=== PATIENT | female | born 1980 | race Caucasian/White ===

== ENCOUNTER → 2020-01-17 | Outpatient (CLI) | payer OTHER ==
--- NOTE | 2020-01-17 18:05 | NUR ---
to WS via ambulation from registration for rhogam administration.
--- NOTE | 2020-01-17 18:55 | NUR ---
rhogam given. see intervention. [id number] ambulated off WS , no s/s of distress. voiced no concerns.
== END ==
LOC: WSo 17:50
PROVIDERS: ATTEND Obstetrics & Gynecology
DX: O36.0191 Maternal care for anti-D [Rh] antibodies, unspecified trimester, fetus 1 (principal)
CPT/HCPCS: 96372

== ENCOUNTER 2020-04-06 03:49 | Inpatient (IN) | payer OTHER ==
[2020-04-06] VITALS (14 sets, daily range): BP systolic 115–143; BP diastolic 63–105
[~2020-04-06] VITALS: Ht 167 cm; Wt 76.0 kg
--- NOTE | 2020-04-06 03:55 | NUR ---
AYUSH MACIAS presented to unit via ambulation from ED, accompanied by , with c/o CONTRACTIONS. AYUSH MACIAS weighed, gowned, voided, and to bed. EFHM and TOCO applied, VS taken. AYUSH MACIAS oriented to bed controls, call light, TV, heat, and A/C controls.
[2020-04-06] MEDS ORDERED: D5 LR IV SOLUTION 1,000 ML IV ONE (04:03)
--- NOTE | 2020-04-06 04:05 | NUR ---
Dr. Feng notified of arrival and assessment. Orders received. en route to hospital.
[2020-04-06] MEDS ORDERED: LIDOCAINE/EPI 2% 1:200,00 (XYLOCAINE) 10 ML VIAL ONE (04:15)
[2020-04-06] MEDS ORDERED: OXYTOCIN PRE-MIX DRIP 500 ML IV ONE (04:15)
[2020-04-06] MEDS ORDERED: D5 LR IV SOLUTION 1,000 ML IV SCH (04:23)
[2020-04-06] MEDS ORDERED: OXYTOCIN PRE-MIX DRIP 500 ML IV SCH (05:13)
--- NOTE | 2020-04-06 05:13 | History & Physical ---
History and Physical Date Seen by Provider: Apr 06, 2020 Time Seen by Provider: 05:11 this patient is a 39-year-old 2 para 1 female admitted on her due date in active labor. Cervix was 7 cm dilated at admission. GBS culture had been negative. Presently she had been uncomplicated to date. aLLERGIES ARE TO PENICILLIN mEDICATIONS ARE VITAMINS mEDICAL SOCIAL AND SURGICAL HISTORIES ARE PER THE ANTEPARTUM RECORD heent EXAM IS NORMAL nECK IS SUPPLE NO LYMPHADENOPATHY NO THYROMEGALY aBDOMEN IS GRAVID SOFT NONTENDER NONDISTENDED eXTREMITIES SHOW NO CLUBBING CYANOSIS. tHERE IS NO hOMANS SIGN. aVERAGE EXAM ON MY INITIAL EXAM SHOWED A CERVIX COMPLETELY DILATED WITH BULGING BAG AT THE -1 STATION WITH VERTEX PRESENTATION MONITOR SHOWS NORMAL HEART RATE PATTERN WITH CONTRACTIONS ABOUT EVERY 5 MINUTES aSSESSMENT AND PLAN TERM AT 40 WEEKS GESTATION ADMITTED IN ACTIVE LABOR. aNTICIPATE A VAGINAL DELIVERY SHORTLY. 40 week in active labor Allergies and Home Medications Allergies Coded Allergies: Penicillins (Verified Allergy, Mild, Rash, 04/06/20) Patient Home Medication List Home Medication List Reviewed: Yes SARI HER MD Apr 06, 2020 05:13
[2020-04-06] MEDS ORDERED: BENZOCAINE/MENTHOL (DERMOPLAST) 60 ML CAN TP PRN (05:15)
[2020-04-06] MEDS ORDERED: TETANUS,DIPTH,PERTUSS P/F (BOOSTRIX) 0.5 ML VIAL IM ONE (05:15)
[2020-04-06] MEDS ORDERED: MEASLES,MUMPS,RUBELLA 1 EA INJ SC ONE (05:15)
[2020-04-06] MEDS ORDERED: ONDANSETRON 4 MG/2 ML (SDV) Z0FRAN IVP PRN (05:15)
[2020-04-06] MEDS ORDERED: oxyCODONE/APAP 5/325MG (PERCOCET 5) TABLET PO PRN (05:15)
--- NOTE | 2020-04-06 05:16 | Discharge Inst-Surgical ---
Discharge Inst-Surgical Depart Medication/Instructions New, Converted or Re-Newed RX: RX on Chart Consults/Follow Up Patient Instructions: as directed Orders & Referrals Follow Up Appt: Call to make follow up appt. for patient in 4 weeks. Activity Per routine post vaginal delivery instructions. Please call in RX to patient pharmacy. Diet as tolerated Patient may shower or tub bathe as desired. Activity Activity as Tolerated: No Diet Discharge Diet: No Restrictions SARI HER MD Apr 06, 2020 05:16
[2020-04-06] MEDS ORDERED: DCS100C PO (05:17)
[2020-04-06] MEDS ORDERED: IBUP-1780 PO (05:17)
--- NOTE | 2020-04-06 05:49 | OPERATIVE REPORT ---
DATE OF SERVICE: 04/06/2020 DELIVERY NOTE The patient delivered by term spontaneous vaginal delivery on her due date a viable female infant with Apgars of 8 and 9 at 1 and 5 minutes respectively. Weight is 8 LBS. 2 OZ.and a cord blood pH that is pending. time was 0457. The infant was delivered over an intact perineum under no analgesia. The infant was bulb suctioned on delivery of the head and again on completion of delivery. Umbilical cord was doubly clamped, father cut the cord, the baby was passed to mom's abdomen. Placenta delivered promptly spontaneously Zarate. It was a battledore placenta that was otherwise perfectly normal. The cervix, vagina, rectum, and perineum were examined and found intact. Blood loss was around 150 mL for delivery. The patient tolerated the delivery well and remained in the LDR for recovery. The baby remained with mom. Job ID: [id number] DocumentID: [id number] Dictated Date: 04/06/2020 05:10:45 Nurse Executive Date: 04/06/2020 05:48:51 Dictated By: SARI HER MD MTDD
[2020-04-06] MEDS ORDERED: KETOROLAC 30 MG/ML VIAL ONE ×2 (06:06→07:34)
[2020-04-06 06:26] LABS: BASOPHILS % (AUTO) 0 % (0-10); EOSINOPHILS # (AUTO) 0.1 10^3/uL (0.0-0.3); EOSINOPHILS % (AUTO) 1 % (0-10); HEMATOCRIT 32 % (35-52); HEMOGLOBIN 10.1 g/dL (11.5-16.0); LYMPHOCYTES % (AUTO) 13 % (12-44); MEAN CORPUSCULAR HEMOGLOBIN 28 pg (25-34); MEAN CORPUSCULAR HGB CONC 32 g/dL (32-36); MEAN CORPUSCULAR VOLUME 89 fL (80-99); MEAN PLATELET VOLUME 11.9 fL (9.0-12.2); MONOCYTES % (AUTO) 7 % (0-12); NEUTROPHILS % (AUTO) 79 % (42-75); PLATELET COUNT 218 10^3/uL (130-400); WHITE BLOOD COUNT 15.3 10^3/uL (4.3-11.0)
[2020-04-06] MEDS ORDERED: FLU QUADRIvalent (3YOA+) 60 mcg/0.5 ml 2020-21 (AFLURIA) IM ONE (07:15)
[2020-04-06] MEDS: KETOROLAC 30 MG/ML VIAL IVP SCH ×2 (07:59→13:57)
--- NOTE | 2020-04-06 08:00 | NUR ---
This RN receives report from Kenzie Cano at this time. VSS. Fundus firm, midline, 2 below, small bleeding. Pt assisted walk to bathroom. Void without difficulty, pericare done. Gown & peripad changed. Pt to wheelchair for room transfer to #309. Pt oriented to new room, menu, etc. Clal light within reach. Pt denies needs at this time.
[2020-04-06] MEDS: DOCUSATE SODIUM 100 MG (COLACE) CAP PO SCH ×2 (19:29→20:30)
[2020-04-06] MEDS ORDERED: IBUPROFEN 800 MG (MOTRIN) TAB PO ONE (20:24)
[2020-04-06] MEDS: IBUPROFEN 800 MG (MOTRIN) TAB PO SCH (20:30)
[2020-04-07 01:30] VITALS: BP 122/73
[2020-04-07] MEDS ORDERED: IBUPROFEN 800 MG (MOTRIN) TAB PO ONE (01:42)
[2020-04-07] MEDS: IBUPROFEN 800 MG (MOTRIN) TAB PO SCH ×4 (01:48→20:26)
[2020-04-07 08:00] VITALS: BP 114/73
--- NOTE | 2020-04-07 08:00 | NUR ---
A.M. ASSESSMENT COMPLETED. VSS. WHEN ENTERED ROOM. SET UP SHOWER. DR. HER IN TO SEE PT.
--- NOTE | 2020-04-07 08:07 | Progress Note ---
Standard Progress Note Progress Notes/Assess & Plan Date Seen by a Provider: Apr 07, 2020 Time Seen by a Provider: 08:06 Progress/Assessment & Plan this patient is without complaint. She is ambulating, voiding, tolerating oral intake well has good pain control. Vital Signs Date Time Temp Pulse Resp B/P (MAP) Pulse Ox O2 Delivery O2 Flow Rate FiO2 04/07/20 01:30 36.6 71 18 122/73 (89) 98 Room Air 04/06/20 20:30 37.2 80 18 118/69 (85) 97 Room Air 04/06/20 15:30 36.6 84 16 120/63 (82) 97 Room Air 04/06/20 12:00 36.7 71 16 115/76 (89) 97 Room Air I & O 04/07/20 07:00 Intake Total 1000 ml Balance 1000 ml vital signs are stable. Patient is afebrile. Fundus is firm below the umbilicus and nontender. Extremities show no clubbing cyanosis. There is no Homans sign. Assessment and plan day number 1 status post spontaneous vaginal delivery at 40 weeks gestation. Patient doing well will have routine convalescence care with discharge home today or tomorrow as she prefers Final Diagnosis 40 week spontaneous vaginal delivery SARI HER MD Apr 07, 2020 08:07
[2020-04-07] MEDS: DOCUSATE SODIUM 100 MG (COLACE) CAP PO SCH ×2 (08:10→20:26)
--- NOTE | 2020-04-07 08:15 | NUR ---
DR. GANNON IN TO SEE .
--- NOTE | 2020-04-07 10:33 | NUR ---
TDAP GIVEN IM IN LEFT DELTOID. SITE CLEAR. FLU GIVEN IM IN RIGHT DELTOID. SITE CLEAR. WHEN ENTERED ROOM.
--- NOTE | 2020-04-07 13:30 | NUR ---
EATING STORK MEAL.
[2020-04-07 14:00] VITALS: BP 125/77
--- NOTE | 2020-04-07 14:50 | NUR ---
RHOGAM 1 VIAL GIVEN IM IN LEFT VG SITE. SITE CLEAR.
[2020-04-07 17:30] VITALS: BP 115/68
--- NOTE | 2020-04-07 17:30 | NUR ---
VSS. CONTINUES TO DO WELL. WELL. GOOD INTERACTION NOTED.
[2020-04-07 20:26] VITALS: BP 124/78
[2020-04-07] MEDS ORDERED: WITCH HAZEL(TUCKS) 40 EA JAR ONE (20:29)
[2020-04-07] MEDS ORDERED: WITCH HAZEL(TUCKS) 40 EA JAR TOP PRN (20:30)
[2020-04-08 03:25] VITALS: BP 121/73
[2020-04-08] MEDS: IBUPROFEN 800 MG (MOTRIN) TAB PO SCH ×2 (03:25→08:38)
[2020-04-08 08:30] VITALS: BP 119/78
--- NOTE | 2020-04-08 08:30 | NUR ---
A.M. ASSESSMENT COMPLETED. VSS. CARING FOR IN ROOM. GOOD INTERACTION NOTED. ANXIOUS TO GO HOME.
[2020-04-08] MEDS: DOCUSATE SODIUM 100 MG (COLACE) CAP PO SCH (08:37)
--- NOTE | 2020-04-08 10:40 | NUR ---
DISCHARGE INSTRUCTIONS REVIEWED WITH COPY TO PT. STATES UNDERSTANDING OF ALL INSTRUCTIONS AND NEED TO F/U SCHEDULED AND NEEDED.
[2020-04-08 12:10] VITALS: BP 119/78
--- NOTE | 2020-04-08 12:10 | NUR ---
DISMISSED AMB FROM WS WITH INFANT IN STABLE CONDITION ACC BY SPOUSE AND GEORGE FRANCES RN.
== END 2020-04-08 12:10 | disposition home or self-care (01) | DRG 807 ==
LOC: WSo 03:49 → LDRP 03:50 → WSo 04:30 → LDRP 04:36
PROVIDERS: ADMIT Obstetrics & Gynecology; ATTEND Obstetrics & Gynecology
PROC: 10E0XZZ Delivery of Products of Conception, External Approach (ICD-10-PCS; principal; 2020-04-06)
DX: O48.0 Post-term pregnancy (principal); Z37.0 Single live birth; O43.193 Other malformation of placenta, third trimester; Z3A.40 40 weeks gestation of pregnancy
CPT/HCPCS: 36415; 83033; 85025; 86850; 86900; 86901; 90686; 90715; 99212

== ENCOUNTER 2020-06-29 05:46 | Outpatient (RCR) | payer OTHER ==
[~2020-06-29] VITALS: Ht 167 cm; Wt 65.9 kg
[~2020-06-29 05:46] MED LIST: BCP PO; DCS100C PO; IBUP-1780 PO
== END 2020-06-29 11:03 | disposition home or self-care (01) ==
LOC: PREOP 05:46
PROVIDERS: ATTEND Obstetrics & Gynecology
DX: Z01.818 Encounter for other preprocedural examination (principal); D06.9 Carcinoma in situ of cervix, unspecified; Z20.828 Contact with and (suspected) exposure to other viral communicable diseases
CPT/HCPCS: 87635

== ENCOUNTER 2020-07-01 10:59 | Day surgery (SDC) | payer OTHER ==
[~2020-07-01] VITALS: Ht 167 cm; Wt 65.9 kg
[2020-07-01] VITALS (10 sets, daily range): BP systolic 98–137; BP diastolic 66–92
[2020-07-01] MEDS ORDERED: LACTATED RINGERS 1,000 ML IV PRN (11:15)
[2020-07-01] MEDS ORDERED: ceFAZolin INJECTION 1,000 MG in WATER (STERILE) FOR INJECTION 10 ML IV ONE (11:15)
[2020-07-01 12:00] LABS: BASOPHILS # (AUTO) 0.1 10^3/uL (0.0-0.1); BASOPHILS % (AUTO) 1 % (0-10); EOSINOPHILS # (AUTO) 0.1 10^3/uL (0.0-0.3); EOSINOPHILS % (AUTO) 2 % (0-10); HEMATOCRIT 44 % (35-52); HEMOGLOBIN 13.8 g/dL (11.5-16.0); LYMPHOCYTES # (AUTO) 2.3 10^3/uL (1.0-4.0); LYMPHOCYTES % (AUTO) 38 % (12-44); MEAN CORPUSCULAR HEMOGLOBIN 28 pg (25-34); MEAN CORPUSCULAR HGB CONC 32 g/dL (32-36); MEAN CORPUSCULAR VOLUME 89 fL (80-99); MEAN PLATELET VOLUME 10.7 fL (9.0-12.2); MONOCYTES # (AUTO) 0.5 10^3/uL (0.0-1.0); MONOCYTES % (AUTO) 8 % (0-12); NEUTROPHILS # (AUTO) 3.1 10^3/uL (1.8-7.8); NEUTROPHILS % (AUTO) 50 % (42-75); PLATELET COUNT 242 10^3/uL (130-400); WHITE BLOOD COUNT 6.1 10^3/uL (4.3-11.0)
[2020-07-01] MEDS ORDERED: proPOfol 200 MG/20 ML (DIPRIVAN) VIAL IV ONE (12:03)
[2020-07-01] MEDS ORDERED: LIDOCAINE PF 2% 5 ML (XYLOCAINE) VIAL ONE (12:03)
[2020-07-01] MEDS ORDERED: ONDANSETRON 4 MG/2 ML (SDV) Z0FRAN ONE (12:03)
[2020-07-01] MEDS ORDERED: MIDAZOLAM 2 MG/2 ML (VERSED) VIAL ONE (12:03)
[2020-07-01] MEDS ORDERED: SEVOFLURANE (ULTANE) 15 ML INHAL SOLN ONE (12:03)
[2020-07-01] MEDS ORDERED: fentaNYL INJECTION 100 MCG/2 ML AMP ONE (12:03)
[2020-07-01] MEDS ORDERED: LIDOCAINE/EPI 1%-1:200,000 (XYLOCAINE) 30 ML VIAL ONE (13:05)
--- NOTE | 2020-07-01 13:09 | Progress Note-Pre Operative ---
Pre-Operative Progress Note H&P Reviewed The H&P was reviewed, patient examined and no changes noted. Date Seen by Provider: Jul 01, 2020 Time Seen by Provider: 13:09 Date H&P Reviewed: Jul 01, 2020 Time H&P Reviewed: 13:09 Pre-Operative Diagnosis: HEBER-3 SARI HER MD Jul 01, 2020 13:09
--- NOTE | 2020-07-01 13:10 | Progress Note-Post Operative ---
Post-Operative Progess Note Surgeon (s)/Mash Tub Cooker (s) Surgeon SARI HER MD Mash Tub Cooker: NONE Pre-Operative Diagnosis HEBER-3 - EXOPHYTIC LESION L LABIA MAJORA Post-Operative Diagnosis Same with pathology pending Procedure & Operative Findings Date of Procedure 07/01/20 Procedure Performed/Findings LEEP procedure/two pass AND EXCISION OF LEFT LABIA MAJORA LESION Anesthesia Type GETA Estimated Blood Loss Estimated blood loss (mL): MINIMAL Specimens/Packing Specimens Removed Ectocervix/endocervix - AD LEFT LABIAL MAJORA SKIN LESION SARI HER MD Jul 01, 2020 13:10
[2020-07-01] MEDS ORDERED: OXYC1TAB87 PO (13:12)
[2020-07-01] MEDS ORDERED: IBUP-1780 PO (13:12)
--- NOTE | 2020-07-01 13:13 | Discharge Inst-Surgical ---
Discharge Inst-Surgical Depart Medication/Instructions New, Converted or Re-Newed RX: RX on Chart Consults/Follow Up Patient Instructions: As directed Orders & Referrals Follow Up Appt: Call to make follow up appt. for patient in 2 weeks. Activity: Rest for 24 hours, than as tolerated. Please call in RX to patient pharmacy. Diet: As tolerated shower or tub bathe as desired. No driving for 24 hours, no alcoholic beverages for 24 hours, and nothing per vagina (no tampons, douching, or intercourse) for 2 weeks. Patient to return to the clinic as soon as possible for: Temperature greater than 101F, Severe Pain, Foul discharge from incision or vagina, Excessive Bleeding (more than a period). Activity Activity as Tolerated: No Diet Discharge Diet: No Restrictions SARI HER MD Jul 01, 2020 13:13
[2020-07-01] MEDS ORDERED: MEPERIDINE (DEMEROL) INJ 100 MG/ML IM ONE (13:15)
[2020-07-01] MEDS ORDERED: PROMETHAZINE INJ 25 MG/ML (PHENERGAN) AMP IM ONE (13:15)
[2020-07-01] MEDS ORDERED: ONDANSETRON 4 MG/2 ML (SDV) Z0FRAN IVP PRN ×2 (13:15→14:00)
[2020-07-01] MEDS ORDERED: KETOROLAC 30 MG/ML VIAL IVP ONE (13:15)
[2020-07-01] MEDS ORDERED: HYDROcodone/APAP 10 MG/325 MG (LORTAB) TAB PO PRN (13:15)
[2020-07-01] MEDS ORDERED: D5 LR IV SOLUTION 1,000 ML IV SCH (13:15)
[2020-07-01] MEDS ORDERED: MEPERIDINE (DEMEROL) INJ 50 MG/ML IVP ONE (14:00)
[2020-07-01] MEDS ORDERED: HYDROmorphone 2 MG/ML VIAL (DILAUDID) IV ONE (14:00)
[2020-07-01] MEDS ORDERED: fentaNYL INJECTION 100 MCG/2 ML AMP IVP ONE (14:00)
[2020-07-01] MEDS ORDERED: morphine INJ 10 MG/ML 1ML (SYR OR VIAL) IVP ONE (14:00)
--- NOTE | 2020-07-01 14:01 | Anesthesia-General Post-Op ---
General Patient Condition Mental Status/LOC: Same as Preop Cardiovascular: Satisfactory Nausea/Vomiting: Absent Respiratory: Satisfactory Pain: Controlled Complications: Absent Post Op Complications Complications None Follow Up Care/Instructions Patient Instructions None needed. Anesthesia/Patient Condition Patient Condition Patient is doing well, no complaints, stable vital signs, no apparent adverse anesthesia problems. No complications reported per nursing. CHEMO BAILEY CRNA Jul 01, 2020 14:01
--- NOTE | 2020-07-01 20:45 | OPERATIVE REPORT ---
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 OPERATIVE PROCEDURE: LEEP procedure. Colposcopically guided with two passes and with excision of left labial lesion. OPERATIVE DESCRIPTION: With the patient in the supine position under satisfactory general anesthesia, she was repositioned in dorsal lithotomy position in the [facility] and then prepped and draped in the usual fashion for vaginal surgery. Weighted speculum placed in posterior fornix of vagina, cervix exposed and grasped anteriorly with single tooth tenaculum. Uterus was somewhat fixed high in the pelvis, but the cervix was exposed adequately. The cervix was then saturated with 5% acetic acid and after several minutes, that was evacuated from the vagina. There was a large acetowhite lesion encompassing the majority of the surface of the cervix. A 20 mm LEEP electrode was used to excise the ectocervix in a single pass. The specimen was tagged at the 6 o'clock position and sent to pathology for permanent section. A second pass was made with a 7 mm wide loop to remove the endocervix to a depth of approximately 1.1 cm. That specimen was tagged at the 12 o'clock position and sent to pathology, also for permanent section. The cautery was set at 45 for coag and at 55 for cut. The defect in the cervix was now treated with ball electrocautery to affect complete hemostasis. Blood loss was minimal. Sponge and needle counts were correct. On completion of the procedure, the tenaculum was removed. There was no bleeding from the puncture sites and there was no bleeding from the LEEP defect. Attention was now turned to the left labia majora. There was a 6 mm x 8 mm exophytic verrucous appearing lesion that was the base of which was infiltrated with 1% lidocaine with epinephrine and then scissors were used to remove the lesions sharply from the skin. That specimen was sent to pathology labeled as left labial exophytic lesion. The defect was touched with silver nitrate to affect hemostasis. With hemostasis assured at all operative sites, sponge and needle counts correct. Blood loss minimal. The patient was now uneventfully awakened from her general anesthesia and transferred to the recovery room in stable condition with plans for discharge home PAR. Job ID: [id number] DocumentID: [id number] Dictated Date: 07/01/2020 14:50:51 Spray Gun Striper Date: 07/01/2020 20:44:50 Dictated By: SARI HER MD MTDD
== END 2020-07-01 15:50 | disposition home or self-care (01) ==
LOC: SDC 10:59
PROVIDERS: ATTEND Obstetrics & Gynecology
DX: D06.9 Carcinoma in situ of cervix, unspecified (principal); N90.0 Mild vulvar dysplasia; K21.9 Gastro-esophageal reflux disease without esophagitis; Z79.899 Other long term (current) drug therapy; Z88.0 Allergy status to penicillin; Z87.891 Personal history of nicotine dependence
CPT/HCPCS: 36415; 84703; 85025; 87081

== ENCOUNTER 2020-07-16 22:06 | Emergency (ER) | payer OTHER ==
[~2020-07-16] VITALS: Ht 167.7 cm; Wt 65.7 kg
[~2020-07-16 22:06] MED LIST changes: +OXYC1TAB87 PO
[2020-07-16 22:29] LABS: BILIRUBIN,URINE NEGATIVE (NEGATIVE); COLOR,URINE RED; GLUCOSE, URINE (UA) NEGATIVE (NEGATIVE); KETONES,URINE 1+ (NEGATIVE); LEUKOCYTE ESTERASE ,URINE 2+ (NEGATIVE); PH,URINE 6.5 (5-9); PROTEIN,URINE 3+ (NEGATIVE)
--- NOTE | 2020-07-16 22:35 | ED GU-Female ---
General Chief Complaint: Female Reproductive Stated Complaint: POST OP BLEEDING - CERVIX Source: patient Exam Limitations: no limitations History of Present Illness Date Seen by Provider: Jul 16, 2020 Time Seen by Provider: 22:17 Initial Comments Patient presents ER by private conveyance from home with chief complaint for the past 2 to 3 days she has had progressively increasing bleeding per vagina. She is on progesterone only oral contraceptives. She is had no abdominal surgeries but she had a LEEP procedure on the , [address] Feng. Her blood clots she is passing for the past 2 days are the size of a quarter. She is having no chest pain or shortness of breath on exertion. She has no si gnificant history of anemia. She has an appointment with Dr. Feng in the morning but has not called him yet. She says she has been using a pad that was lightly soiled every time she went to the bathroom however tonight it was less than an hour and the pad was completely soaked. It was a ultralight pad. This is what concerned her and so she presented to the ER. She is not having significant pain. She denies nausea fever chills cough shortness of air. She is using ibuprofen for any discomfort. Patient states the last time she had intercourse was prior to the surgery. Allergies and Home Medications Allergies Coded Allergies: Penicillins (Verified Allergy, Mild, Rash, 06/24/20) Home Medications Cephalexin 500 Mg Tablet, 500 MG PO BID Prescribed by: MATT HODGES on 07/17/20 0019 Ibuprofen 800 Mg Tablet, 800 MG PO Q6H PRN for PAIN Prescribed by: SARI GIL on 07/01/20 1312 Oxycodone HCl/Acetaminophen 1 Each Tablet, 1 TAB PO Q4H Prescribed by: SARI GIL on 07/01/20 1312 [Bcp] , 1 TAB PO DAILY, (Reported) Patient Home Medication List Home Medication List Reviewed: Yes Review of Systems Review of Systems Constitutional: No chills, No diaphoresis EENTM: No ear discharge, No ear pain Respiratory: No cough, No short of breath Cardiovascular: No chest pain, No palpitations, No vascular heart diseas Gastrointestinal: No abdominal pain, No constipation, No diarrhea Genitourinary: denies burning, denies discharge : No Musculoskeletal: No back pain, No joint pain Endocrine: Denies Flushing Hematologic/Lymphatic: Denies Anemia All Other Systemes Reviewed Negative Unless Noted: No Past Tqoozwp-Tsmras-Rkcqcx Hx Patient Social History Alcohol Use: Denies Use Recreational Drug Use: No Smoking Status: Former Smoker Type Used: Cigarettes Former Smoker, Quit: Jun 24, 2010 2nd Hand Smoke Exposure: No Recent Foreign Travel: No Contact w/Someone Who Travel: No Recent Hopitalizations: No Immunizations Up To Date Tetanus Booster (TDap): Unknown Date of Influenza Vaccine: Apr 13, 2020 Seasonal Allergies Seasonal Allergies: No Past Medical History Surgeries: Yes (leep) Respiratory: No Currently Using CPAP: No Currently Using BIPAP: No Cardiac: No Neurological: No Female Reproductive Disorders: Denies Sexually Transmitted Disease: Yes (Chlamydia ) Genitourinary: No Gastrointestinal: Yes Gastroesophageal Reflux Musculoskeletal: No Endocrine: No HEENT: No Loss of Vision: Denies Hearing Impairment: Denies Cancer: No Psychosocial: No Integumentary: No Blood Disorders: No Adverse Reaction/Blood Tranf: No (N/A) Family Medical History Patient reports no known family medical history. Physical Exam Vital Signs Vital Signs - First Documented 07/16/20 22:10 Temp 36.4 Pulse 73 Resp 18 B/P (MAP) 134/95 (108) Pulse Ox 99 O2 Delivery Room Air Capillary Refill : Height, Weight, BMI Height: '" Weight: lbs. oz. kg; 23.62 BMI Method: General Appearance: WD/WN, no apparent distress Neck: full range of motion, normal inspection Cardiovascular: normal peripheral pulses, regular rate, rhythm Respiratory: no respiratory distress, no accessory muscle use Gastrointestinal: normal bowel sounds, non tender, soft Genital/Rectal: other (The vaginal introitus is unremarkable with some dried blood on it. The the vault is with pooled blood and some clots. The cervix is beefy red, irritated friable and has multiple points of oozing blood. ) Neurologic/Psychiatric: alert, normal mood/affect, oriented x 3 Skin: normal color, warm/dry Procedures/Interventions Progress Under speculum exam we used silver nitrate to cauterize the multiple points of bleeding on the cervix. Clot was evacuated and she was given a pad. We observed her for about half an hour and she was still passing clots. Took a second look and there were 3 or 4 areas slowly oozing bright red blood on the cervix. Monsel solution was painted and using a second silver nitrate cautery we cauterized several other areas. All but one area was hemostatic. There is a small area around 10 o'clock position with some slow bright red oozing. We were unable to successfully get it to stop bleeding. Explained to the patient that she can follow-up with the surgeon in the morning. Patient is okay with this plan. Plan to cover her with Keflex. Progress/Results/Core Measures Suspected Sepsis SIRS Temperature: Pulse: Respiratory Rate: Laboratory Tests 07/16/20 22:40: White Blood Count 7.0 Blood Pressure / Mean: Laboratory Tests 07/16/20 22:40: Platelet Count 236 Results/Orders Lab Results Laboratory Tests Test 07/16/20 22:13 07/16/20 22:40 Range/Units Urine Color RED H Urine Clarity BLOODY H Urine pH 6.5 5-9 Urine Specific [place] 1.025 H 1.016-1.022 Urine Protein 3+ H NEGATIVE Urine Glucose (UA) NEGATIVE NEGATIVE Urine Ketones 1+ H NEGATIVE Urine Nitrite POSITIVE H NEGATIVE Urine Bilirubin NEGATIVE NEGATIVE Urine Urobilinogen 4.0 < = 1.0 MG/DL Urine Leukocyte Esterase 2+ H NEGATIVE Urine RBC (Auto) 3+ H NEGATIVE Urine RBC TNTC H /HPF Urine WBC RARE /HPF Urine Squamous Epithelial Cells RARE /HPF Urine Crystals NONE /LPF Urine Bacteria TRACE /HPF Urine Casts NONE /LPF Urine Mucus NEGATIVE /LPF Urine Culture Indicated NO White Blood Count 7.0 4.3-11.0 10^3/uL Red Blood Count 4.01 3.80-5.11 10^6/uL Hemoglobin 11.7 11.5-16.0 g/dL Hematocrit 36 35-52 % Mean Corpuscular Volume 91 80-99 fL Mean Corpuscular Hemoglobin 29 25-34 pg Mean Corpuscular Hemoglobin Concent 32 32-36 g/dL Red Cell Distribution Width 13.7 10.0-14.5 % Platelet Count 236 130-400 10^3/uL Mean Platelet Volume 10.3 9.0-12.2 fL Immature Granulocyte % (Auto) 0 % Neutrophils (%) (Auto) 50 42-75 % Lymphocytes (%) (Auto) 39 12-44 % Monocytes (%) (Auto) 6 0-12 % Eosinophils (%) (Auto) 4 0-10 % Basophils (%) (Auto) 1 0-10 % Neutrophils # (Auto) 3.5 1.8-7.8 10^3/uL Lymphocytes # (Auto) 2.7 1.0-4.0 10^3/uL Monocytes # (Auto) 0.4 0.0-1.0 10^3/uL Eosinophils # (Auto) 0.3 0.0-0.3 10^3/uL Basophils # (Auto) 0.1 0.0-0.1 10^3/uL Immature Granulocyte # (Auto) 0.0 0.0-0.1 10^3/uL My Orders Orders - MATT HODGES Ua Culture If Indicated (07/16/20 22:09) Urine Bedside (07/16/20 22:09) Cbc With Automated Diff (07/16/20 22:29) Cephalexin Capsule (Keflex Capsule) (07/17/20 00:15) Medications Given in ED Current Medications Medications Dose Ordered Sig/Karan Route Start Time Stop Time Status Last Admin Dose Admin Cephalexin HCl 500 mg ONCE ONCE PO 07/17/20 00:15 07/17/20 00:17 DC 07/17/20 00:23 500 MG Vital Signs/I&O 07/16/20 07/17/20 22:10 00:23 Temp 36.4 36.4 Pulse 73 70 Resp 18 18 B/P (MAP) 134/95 (108) 128/89 (108) Pulse Ox 99 100 O2 Delivery Room Air Capillary Refill : Progress Note : Time: 22:33 Progress Note Vital signs and clinical exam are unremarkable. Plan to get a CBC with auto differential to rule out significant anemia. Discussed the case with Dr. Feng who recommends if we can see anything to cauterize he usually uses silver nitrate otherwise he will see her in the clinic tomorrow. Departure Impression Primary Impression: Hemorrhage, cervix Additional Impression: Urinary tract infection Qualified Codes: N30.01 - Acute cystitis with hematuria Disposition: HOME, SELF-CARE Condition: Stable Departure-Patient Inst. Decision time for Depature: 00:16 Referrals: SARI FENG MD NO,LOCAL PHYSICIAN (PCP) Primary Care Physician Patient Instructions: Loop Electrosurgical Excision Procedure (DC) Add. Discharge Instructions: We seem to have slowed the bleeding down. You may still pass a few clots throughout the night. Keep your follow-up appointment with the surgeon tomorrow. Your blood levels are normal at 11.7 hemoglobin. Return to the ER promptly for chest pain, shortness of air. To prevent infection and treat potential urinary tract infection will put you on Keflex 1 capsule twice a day for the next 7 days. Nothing in the vagina until cleared by your laborer pipelines. All discharge instructions reviewed with patient and/or family. Voiced understanding. Scripts Cephalexin (Cephalexin) 500 Mg Tablet 500 MG PO BID for 7 Days, #14 TAB 0 Refills Prov: MATT HODGES 07/17/20 Work/School Note: Work Release Form Date Seen in the Emergency Department: Jul 16, 2020 Return to Work: Jul 18, 2020 Restrictions: No Restrictions Copy Copies To 1: SARI FENG MD, TITUS J Jul 16, 2020 22:35
[2020-07-16 22:37] LABS: BACTERIA,URINE TRACE /HPF; CLARITY,URINE BLOODY; RBC,URINE TNTC /HPF; SQUAMOUS EPITHELIAL CELL,UR RARE /HPF; WBC,URINE RARE /HPF
[2020-07-16 22:39] LABS: NITRITE,URINE POSITIVE (NEGATIVE)
[2020-07-16 22:49] LABS: BASOPHILS # (AUTO) 0.1 10^3/uL (0.0-0.1); BASOPHILS % (AUTO) 1 % (0-10); EOSINOPHILS # (AUTO) 0.3 10^3/uL (0.0-0.3); EOSINOPHILS % (AUTO) 4 % (0-10); HEMATOCRIT 36 % (35-52); HEMOGLOBIN 11.7 g/dL (11.5-16.0); LYMPHOCYTES # (AUTO) 2.7 10^3/uL (1.0-4.0); LYMPHOCYTES % (AUTO) 39 % (12-44); MEAN CORPUSCULAR HEMOGLOBIN 29 pg (25-34); MEAN CORPUSCULAR HGB CONC 32 g/dL (32-36); MEAN CORPUSCULAR VOLUME 91 fL (80-99); MEAN PLATELET VOLUME 10.3 fL (9.0-12.2); MONOCYTES # (AUTO) 0.4 10^3/uL (0.0-1.0); MONOCYTES % (AUTO) 6 % (0-12); NEUTROPHILS # (AUTO) 3.5 10^3/uL (1.8-7.8); NEUTROPHILS % (AUTO) 50 % (42-75); PLATELET COUNT 236 10^3/uL (130-400)
--- NOTE | 2020-07-16 22:59 | NUR ---
report given to Lillian
[2020-07-17] MEDS ORDERED: CEPHALEXIN 250 MG (KEFLEX) CAP PO ONE (00:15)
[2020-07-17] MEDS ORDERED: CEPH500T PO (00:19)
[2020-07-17 00:23] VITALS: BP 128/89
== END 2020-07-17 00:26 | disposition home or self-care (01) ==
LOC: EDUNIT# 22:06 → ER 22:08
DX: N88.8 Other specified noninflammatory disorders of cervix uteri (principal); N39.0 Urinary tract infection, site not specified; Z87.891 Personal history of nicotine dependence; Z88.0 Allergy status to penicillin
CPT/HCPCS: 36415; 81000; 84703; 85025

== ENCOUNTER → 2022-04-18 | Outpatient (CLI) | payer OTHER ==
[~2022-04-18] MED LIST changes: +CEPH500T PO; -DCS100C PO; +DOCU-239 PO
--- NOTE | 2022-04-18 19:10 | Diagnostic Imaging Report ---
INDICATION: Routine screening. No prior mammograms are available for comparison. This is a baseline study. 2-D and 3-D bilateral screening mammography was performed with CAD. Both breasts are heterogeneously dense, limiting the sensitivity of mammography. No mass or malignant-appearing microcalcifications are seen. Axillae are unremarkable. IMPRESSION: BI-RADS Category 1 No mammographic features suspicious for malignancy are identified. ACR BI-RADS Category 1: Negative. Result letter will be mailed to the patient. Note: At least 10% of breast cancer is not imaged by mammography. Dictated by: Dictated on workstation # [id number]
== END ==
LOC: RAD 15:00
PROVIDERS: ATTEND Obstetrics & Gynecology
DX: Z12.31 Encounter for screening mammogram for malignant neoplasm of breast (principal)
CPT/HCPCS: 77063; 77067

== ENCOUNTER → 2023-05-31 | Outpatient (CLI) | payer MEDICARE, OTHER ==
--- NOTE | 2023-05-31 09:25 | Diagnostic Imaging Report ---
INDICATION: Routine screening. Comparison is made with prior mammogram from 04/18/2022. 2-D and 3-D bilateral screening mammography was performed with CAD. Both breasts are heterogeneously dense, limiting the sensitivity of mammography. The parenchymal pattern is stable. No mass or malignant-appearing microcalcifications are seen. Axillae are unremarkable. IMPRESSION: No mammographic features suspicious for malignancy are identified. ACR BI-RADS Category 1: Negative. Result letter will be mailed to the patient. Note: At least 10% of breast cancer is not imaged by mammography. BI-RADS Category 1 Dictated by: Dictated on workstation # [id number]
== END ==
LOC: RAD 07:35
PROVIDERS: ATTEND Obstetrics & Gynecology
DX: Z12.31 Encounter for screening mammogram for malignant neoplasm of breast (principal)
CPT/HCPCS: 77063; 77067